=== PATIENT | female | born 1985 | race Caucasian/White ===

== ENCOUNTER 2017-06-18 12:15 | Observation (INO) | payer MEDICAID ==
[~2017-06-18] VITALS: Ht 162.6 cm; Wt 95.3 kg
[~2017-06-18 12:15] MED LIST: FERR-252 PO; PREN-385 PO; PREN1SGL25 PO
[2017-06-18 13:00] VITALS: BP 157/96
--- NOTE | 2017-06-18 14:53 | NUR ---
Patient unable to urinate at this time
[2017-06-18] MEDS ORDERED: TERBUTALINE 1 MG/ML VIAL SUBQ SCH (14:56)
[2017-06-18] MEDS ORDERED: TERBUTALINE 1 MG/ML VIAL SUBQ ONE (15:32)
[2017-06-18 15:38] LABS: BASOPHILS % (AUTO) 0.1 % (0.0-2.0); HEMATOCRIT 39.7 % (36-48); HEMOGLOBIN 13.1 g/dL (12.0-16.0); LYMPHOCYTES # (AUTO) 0.7 K/uL (2.5-16.5); LYMPHOCYTES % (AUTO) 4.7 % (20.5-51.1); MEAN CORPUSCULAR HEMOGLOBIN 29 pg (27-31); MEAN CORPUSCULAR HGB CONC 33 g/dL (33-37); MEAN CORPUSCULAR VOLUME 88.4 fL (80-94); MONOCYTES # (AUTO) 0.4 K/uL (0.8-1.0); MONOCYTES % (AUTO) 2.6 % (1.7-9.3); NEUTROPHILS # (AUTO) 14.6 K/uL (1.8-7.7); NEUTROPHILS % (AUTO) 92.6 % (42.2-75.2); PLATELET COUNT (AUTO) 143 K/uL (140-450); RED BLOOD CELL COUNT(AUTO) 4.48 MIL/uL (4.20-5.40); RED CELL DISTRIBUTION WIDTH 13.5 % (11.6-13.7); WHITE BLOOD COUNT (AUTO) 15.8 K/uL (4.8-10.8)
[2017-06-18 16:47] LABS: PROTHROMBIN TIME 9.3 secs (10.8-13.4)
[2017-06-18] MEDS ORDERED: ACETAMINOPHEN 325 MG TAB PO PRN (17:25)
[2017-06-18 17:47] LABS: ANION GAP 16.4 (8-16); CARBON DIOXIDE 21.3 mmol/L (21-32); CREATININE 0.8 mg/dL (0.6-1.3); POTASSIUM 3.7 mmol/L (3.5-5.1)
[2017-06-18 17:53] LABS: ALBUMIN 2.7 g/dL (3.4-5.0); TOTAL BILIRUBIN 0.5 mg/dL (0.0-1.0)
[2017-06-18] MEDS: LACTATED RINGERS 1,000 ML IV SCH (18:44)
[2017-06-18] MEDS ORDERED: ONDANSETRON 4 MG/2 ML VIAL IVP PRN (20:00)
[2017-06-18] MEDS ORDERED: ONDANSETRON 4 MG/2 ML VIAL ONE (20:13)
[2017-06-18 21:29] LABS: APPEARANCE,URINE CLEAR (CLEAR); BILIRUBIN,URINE 1+ (NEGATIVE); BLOOD, URINE 1+ (NEGATIVE); COLOR,URINE BROWN (YELLOW); LEUKOCYTE ESTERASE ,URINE NEGATIVE (NEGATIVE); NITRITE, URINE NEGATIVE (NEGATIVE); PH,URINE 5.5 (5.0-9.0); UGLUCOSE NEGATIVE (NEGATIVE)
[2017-06-18 21:40] LABS: RBC,URINE 0-5 (RARE) /HPF (0-5); WBC,URINE 0-5 (RARE) /HPF (0-5)
[2017-06-18] MEDS ORDERED: NALBUPHINE 10 MG/ML AMP IVP PRN (23:00)
[2017-06-18] MEDS ORDERED: NALBUPHINE HYDROCHLORIDE 10 MG/ML VIAL ONE (23:03)
[2017-06-19] MEDS: LACTATED RINGERS 1,000 ML IV SCH ×2 (01:51→08:01)
[2017-06-19 06:52] LABS: BASOPHILS % (AUTO) 0.1 % (0.0-2.0); EOSINOPHILS % (AUTO) 0.1 % (0.0-4.0); HEMATOCRIT 33.6 % (36-48); HEMOGLOBIN 11.2 g/dL (12.0-16.0); LYMPHOCYTES # (AUTO) 1.9 K/uL (2.5-16.5); MEAN CORPUSCULAR HEMOGLOBIN 30 pg (27-31); MEAN CORPUSCULAR HGB CONC 33 g/dL (33-37); MEAN CORPUSCULAR VOLUME 89.3 fL (80-94); MONOCYTES # (AUTO) 0.9 K/uL (0.8-1.0); MONOCYTES % (AUTO) 7.4 % (1.7-9.3); NEUTROPHILS # (AUTO) 9.9 K/uL (1.8-7.7); NEUTROPHILS % (AUTO) 77.4 % (42.2-75.2); PLATELET COUNT (AUTO) 123 K/uL (140-450); RED BLOOD CELL COUNT(AUTO) 3.76 MIL/uL (4.20-5.40); RED CELL DISTRIBUTION WIDTH 13.6 % (11.6-13.7); WHITE BLOOD COUNT (AUTO) 12.8 K/uL (4.8-10.8)
--- NOTE | 2017-06-19 10:22 | NUR ---
PATIENT HAS BEEN SCREENED AND CATEGORIZED LOW NUTRITION RISK. PATIENT WILL BE SEEN WITHIN 7 DAYS OF ADMISSION. 06/25/[address]
== END 2017-06-19 13:35 | disposition home or self-care (01) ==
LOC: MFCC 12:15
PROVIDERS: ADMIT Obstetrics & Gynecology; ATTEND Obstetrics & Gynecology
DX: O21.2 Late vomiting of pregnancy (principal); O26.893 Other specified pregnancy related conditions, third trimester; R10.10 Upper abdominal pain, unspecified; R51 Headache; Z3A.38 38 weeks gestation of pregnancy
CPT/HCPCS: 36415; 76815; 80053; 81001; 85025; 85379; 85384; 85610; 85730; 96361; 96372; 96374; 96375; G0378; J2300; J2405; J3105; J7120; Q0092

== ENCOUNTER 2017-06-20 08:40 | Inpatient (IN) | payer MEDICAID ==
[~2017-06-20] VITALS: Ht 162.6 cm; Wt 94.3 kg
[2017-06-20 09:12] VITALS: BP 158/97
[2017-06-20] MEDS ORDERED: CARBOPROST 250 MCG/ML AMP IM PRN (10:40)
[2017-06-20] MEDS ORDERED: NALBUPHINE HYDROCHLORIDE 10 MG/ML VIAL IVP PRN (10:40)
[2017-06-20] MEDS ORDERED: METHYLERGONOVINE 0.2 MG/ML AMP IM PRN (10:40)
[2017-06-20] MEDS ORDERED: OXYTOCIN 20 UNITS in LACTATED RINGERS 1,000 ML IV SCH ×2 (10:40→19:23)
[2017-06-20] MEDS ORDERED: PROMETHAZINE 25 MG/ML VIAL IVP PRN (10:40)
[2017-06-20] MEDS ORDERED: OXYTOCIN 10 UNITS/ML VIAL IM SCH (10:40)
[2017-06-20] MEDS ORDERED: NALBUPHINE HYDROCHLORIDE 10 MG/ML VIAL ONE (11:01)
[2017-06-20] MEDS ORDERED: PROMETHAZINE 25 MG/ML VIAL ONE (11:01)
[2017-06-20] MEDS: LACTATED RINGERS 1,000 ML IV SCH ×2 (11:03→21:40)
--- NOTE | 2017-06-20 11:28 | NUR ---
PATIENT HAS BEEN SCREENED AND CATEGORIZED LOW NUTRITION RISK. PATIENT WILL BE SEEN WITHIN 7 DAYS OF ADMISSION. 06/27/17 JANNY HOOKS MS, RDN
[2017-06-20 12:03] LABS: BASOPHILS % (AUTO) 0.1 % (0.0-2.0); EOSINOPHILS # (AUTO) 0.1 K/uL (0-0.4); EOSINOPHILS % (AUTO) 0.6 % (0.0-4.0); HEMATOCRIT 33.8 % (36-48); HEMOGLOBIN 11.4 g/dL (12.0-16.0); LYMPHOCYTES # (AUTO) 1.8 K/uL (2.5-16.5); LYMPHOCYTES % (AUTO) 18.1 % (20.5-51.1); MEAN CORPUSCULAR HEMOGLOBIN 30 pg (27-31); MEAN CORPUSCULAR HGB CONC 34 g/dL (33-37); MEAN CORPUSCULAR VOLUME 88.7 fL (80-94); MONOCYTES # (AUTO) 0.6 K/uL (0.8-1.0); MONOCYTES % (AUTO) 6.5 % (1.7-9.3); NEUTROPHILS # (AUTO) 7.3 K/uL (1.8-7.7); NEUTROPHILS % (AUTO) 74.7 % (42.2-75.2); PLATELET COUNT (AUTO) 119 K/uL (140-450); RED BLOOD CELL COUNT(AUTO) 3.81 MIL/uL (4.20-5.40); RED CELL DISTRIBUTION WIDTH 13.4 % (11.6-13.7); WHITE BLOOD COUNT (AUTO) 9.7 K/uL (4.8-10.8)
[2017-06-20 12:20] LABS: ANION GAP 14.1 (8-16); CARBON DIOXIDE 23.6 mmol/L (21-32); CREATININE 0.8 mg/dL (0.6-1.3); POTASSIUM 3.7 mmol/L (3.5-5.1)
[2017-06-20 12:26] LABS: ALBUMIN 2.4 g/dL (3.4-5.0); TOTAL BILIRUBIN 0.3 mg/dL (0.0-1.0)
[2017-06-20] MEDS ORDERED: BUPIVACAINE 0.125%/NS PREMIX 250 ML ONE (12:29)
[2017-06-20] MEDS ORDERED: BUPIVACAINE 0.125%/NS PREMIX 250 ML EPI SCH (13:05)
[2017-06-20] MEDS ORDERED: LABETALOL 200 MG TAB ONE ×2 (13:44→20:56)
[2017-06-20] MEDS ORDERED: LABETALOL 200 MG TAB PO SCH (13:52)
[2017-06-20 15:03] LABS: APPEARANCE,URINE CLEAR (CLEAR); BILIRUBIN,URINE NEGATIVE (NEGATIVE); BLOOD, URINE 2+ (NEGATIVE); LEUKOCYTE ESTERASE ,URINE TRACE (NEGATIVE); NITRITE, URINE NEGATIVE (NEGATIVE); UGLUCOSE NEGATIVE (NEGATIVE)
[2017-06-20 15:12] LABS: COLOR,URINE STRAW (YELLOW)
[2017-06-20] MEDS ORDERED: LABETALOL 100 MG/20 ML VIAL IVP PRN ×2 (15:25→15:35)
[2017-06-20 15:48] LABS: RBC,URINE 0-5 (RARE) /HPF (0-5)
[2017-06-20] MEDS ORDERED: LABETALOL 100 MG/20 ML VIAL ONE (15:50)
[2017-06-20] MEDS: LABETALOL 100 MG/20 ML VIAL IVP PRN ×2 (15:52→16:28)
[2017-06-20] MEDS ORDERED: OXYTOCIN 10 UNITS/ML VIAL ONE (18:44)
[2017-06-20] MEDS ORDERED: IBUPROFEN 600 MG TAB PO PRN (19:25)
[2017-06-20] MEDS ORDERED: BENZOCAINE/MENTHOL 20%-0.5% 60 GM CAN TP PRN (19:25)
[2017-06-20] MEDS ORDERED: oxyCODONE/APAP 5/325 MG 1 TAB TAB PO PRN (19:25)
[2017-06-20] MEDS ORDERED: ACETAMINOPHEN 325 MG TAB PO PRN (19:25)
[2017-06-20] MEDS ORDERED: MEASLES, MUMPS, AND RUBELLA 1 VIAL SQVAC PRN (19:25)
[2017-06-20] MEDS ORDERED: MAG SULF 2000 MG/WATER PREMIX 50 ML IV ONE (19:30)
[2017-06-20] MEDS ORDERED: MAG SULF 2000 MG/WATER PREMIX 100 ML IV ONE ×2 (19:30→19:47)
[2017-06-20] MEDS ORDERED: MAG SULF 20 GM/H2O PREMIX DRIP 500 ML IV ONE (19:45)
[2017-06-20] MEDS: LABETALOL 200 MG TAB PO SCH (21:35)
[2017-06-21] MEDS ORDERED: oxyCODONE/APAP 5/325 MG 1 TAB TAB ONE ×2 (03:13→10:28)
[2017-06-21] MEDS ORDERED: NALBUPHINE HYDROCHLORIDE 10 MG/ML VIAL ONE (06:37)
[2017-06-21] MEDS ORDERED: NALBUPHINE 10 MG/ML AMP IVP SCH (06:40)
[2017-06-21] MEDS ORDERED: MAG SULF 20 GM/H2O PREMIX DRIP 500 ML IV ONE (06:41)
[2017-06-21 07:18] LABS: BASOPHILS % (AUTO) 0.2 % (0.0-2.0); EOSINOPHILS % (AUTO) 0.2 % (0.0-4.0); HEMATOCRIT 31.2 % (36-48); HEMOGLOBIN 10.4 g/dL (12.0-16.0); LYMPHOCYTES # (AUTO) 1.3 K/uL (2.5-16.5); LYMPHOCYTES % (AUTO) 8.5 % (20.5-51.1); MEAN CORPUSCULAR HEMOGLOBIN 30 pg (27-31); MEAN CORPUSCULAR HGB CONC 33 g/dL (33-37); MEAN CORPUSCULAR VOLUME 89.8 fL (80-94); MONOCYTES # (AUTO) 1.1 K/uL (0.8-1.0); MONOCYTES % (AUTO) 7.1 % (1.7-9.3); NEUTROPHILS # (AUTO) 12.8 K/uL (1.8-7.7); PLATELET COUNT (AUTO) 77 K/uL (140-450); RED BLOOD CELL COUNT(AUTO) 3.48 MIL/uL (4.20-5.40); RED CELL DISTRIBUTION WIDTH 13.9 % (11.6-13.7); WHITE BLOOD COUNT (AUTO) 15.2 K/uL (4.8-10.8)
[2017-06-21] MEDS ORDERED: LABETALOL 200 MG TAB ONE ×2 (08:56→20:32)
[2017-06-21] MEDS: LABETALOL 200 MG TAB PO SCH ×2 (09:05→10:02)
[2017-06-21] MEDS: LACTATED RINGERS 1,000 ML IV SCH (11:49)
[2017-06-21] MEDS ORDERED: FAMOTIDINE 20 MG TAB PO SCH ×2 (13:10→21:00)
[2017-06-22] MEDS: LABETALOL 200 MG TAB PO SCH (09:10)
[2017-06-22] MEDS ORDERED: FERR325E14 PO (10:28)
[2017-06-22] MEDS ORDERED: ACET-9800 PO (10:37)
[2017-06-22] MEDS ORDERED: TRA200 PO (10:39)
== END 2017-06-22 16:30 | disposition home or self-care (01) | DRG 560 ==
LOC: MFCC 08:40 → OBSVTOIN 10:36 → MFCC 06-21 21:00
PROVIDERS: ADMIT Obstetrics & Gynecology; ATTEND Obstetrics & Gynecology
PROC: 10E0XZZ Delivery of Products of Conception, External Approach (ICD-10-PCS; principal; 2017-06-20)
PROC: 10907ZC Drainage of Amniotic Fluid, Therapeutic from Products of Conception, Via Natural or Artificial Opening (ICD-10-PCS; 2017-06-20)
PROC: 0KQM0ZZ Repair Perineum Muscle, Open Approach (ICD-10-PCS; 2017-06-20)
PROC: 00HU33Z Insertion of Infusion Device into Spinal Canal, Percutaneous Approach (ICD-10-PCS; 2017-06-20)
PROC: 3E0R3BZ Introduction of Anesthetic Agent into Spinal Canal, Percutaneous Approach (ICD-10-PCS; 2017-06-20)
PROC: 3E0234Z Introduction of Serum, Toxoid and Vaccine into Muscle, Percutaneous Approach (ICD-10-PCS; 2017-06-22)
DX: O99.214 Obesity complicating childbirth (principal); E66.9 Obesity, unspecified; Z68.35 Body mass index [BMI] 35.0-35.9, adult; O70.1 Second degree perineal laceration during delivery; Z23 Encounter for immunization; Z37.0 Single live birth; Z3A.38 38 weeks gestation of pregnancy; Z83.6 Family history of other diseases of the respiratory system; Z83.3 Family history of diabetes mellitus
CPT/HCPCS: G0378 ×2; 36415; 51702; 59409; 76705; 80053; 81001; 83735; 85025; 86592; 86870; 86886; 86900; 86901; 87086; 90715; J2300; J2550; J2590; J3475; J3490; J7120; Q0092